=== PATIENT | male | born 1955 | race Caucasian/White ===

== ENCOUNTER → 2017-01-12 | Outpatient (CLI) | payer BC ==
[~2017-01-12] MED LIST: BENICAR; [UNRECOGNIZED DRUG - REMARK]
--- NOTE | 2017-01-12 17:16 | Diagnostic Imaging Report ---
PROCEDURE: MRI lumbar spine. TECHNIQUE: Multiplanar, multisequence MRI of the lumbar spine was performed without contrast. INDICATION: Low back pain. FINDINGS: There is grade 1 spondylolisthesis of L4 over L5. There is minimal posterior translation of T12 over L1. There is no definite pars defect seen although this is better evaluated with oblique radiographs or CT lumbar spine. The vertebral body heights are preserved. There is significant disc height loss at L4/5 and moderate disc height loss at L3/4 level. There is mild disc desiccation at the upper and mid lumbar spine. There is reactive marrow changes around endplates of L4/5, L3/4 and T12/L1 levels. No suspicious marrow signal abnormality is seen. There is prominent facet arthropathy in the lower lumbar spine most prominent on the left side at L4/5 level with small facet joint effusion. T12/L1: There is minimal retrolisthesis and diffuse disc bulge at this level. No central canal or lateral recess stenosis. No foraminal narrowing. L1/2: There is no disc herniation. Mild facet hypertrophy. No central canal or lateral recess stenosis. L2/3: There is mild disc bulge and mild facet hypertrophy. No central canal stenosis. There is minimal narrowing of the lateral recess. No foraminal stenosis. L3/L4: There is diffuse disc bulge with an annular tear seen posteriorly. There is mild central canal stenosis reducing the AP dimension of the canal to 9.2 mm. There is bilateral mild to moderate facet arthropathy with bilateral moderate stenosis of the lateral recess abutting the descending L4 nerve roots. The foramina demonstrate no significant stenosis. L4/5: There is grade 1 spondylolisthesis and a diffuse disc bulge asymmetric to the left. There is moderate to severe facet arthropathy. There is severe central canal stenosis reducing the AP dimension of the canal to 5.8 mm and there is severe lateral recess stenosis bilaterally that would compress the descending nerve roots particularly at L5 level. There is also bilateral foraminal stenosis moderate to severe on the left and severe on the right side. L5/S1: There is no significant disc herniation. There is mild facet hypertrophy. No central canal stenosis. There is mild to moderate lateral recess stenosis more on the left side abutting the descending left S1 nerve root. There is mild bilateral foraminal stenosis. IMPRESSION: There is severe spinal canal stenosis at L4/5 level, with bilateral foraminal stenosis worse on the right side. There is also grade 1 spondylolisthesis at this level. Dictated by: Dictated on workstation # [id number]
== END ==
LOC: RAD 16:16
PROVIDERS: ATTEND Family Medicine
DX: M54.5 Low back pain (principal)
CPT/HCPCS: 72148

== ENCOUNTER → 2021-11-05 | Outpatient (CLI) | payer BC ==
[~2021-11-05] MED LIST changes: +CATHETER FLUSH 10 ML SYR IV PRN; +HOLD METFORMIN - RECEIVED CONTRAST 20 ML VIAL IV SCH; +IOHEXOL 350 MG/ML 100 ML (OMNIPAQUE 350) VIAL IV ONE; +NS 100 ML (IVPB) BAG IV ONE
--- NOTE | 2021-11-05 13:45 | Diagnostic Imaging Report ---
PROCEDURE: CT abdomen and pelvis with contrast. TECHNIQUE: Multiple contiguous axial images were obtained through the abdomen and pelvis after administration of intravenous contrast. Auto Exposure Controls were utilized during the CT exam to meet ALARA standards for radiation dose reduction. All CT scans use one or more of the following dose optimizing techniques: automated exposure control, MA and/or KvP adjustment based on patient size and exam type or iterative reconstruction. INDICATION: Chronic pancreatitis. COMPARISON: No prior studies are available for comparison. The lung bases are clear. There are circumscribed low attenuation lesions throughout the liver suggestive of cysts. The liver does demonstrate generalized low density consistent with hepatic steatosis. Gallbladder is unremarkable. There is no biliary ductal dilatation. The pancreas demonstrates generalized homogeneous parenchymal enhancement. There is no pancreatic ductal dilatation. No peripancreatic inflammation or fluid is identified. There are no pseudocysts present. The spleen is unremarkable. No adrenal mass is identified. The kidneys are unremarkable. Aorta is nonaneurysmal. The bowel loops are normal caliber. There is no obstruction. There is no free fluid or fluid collection. The bladder is unremarkable. Prostate does appear to be mildly enlarged. The bony structures are nonacute. IMPRESSION: 1. Hepatic steatosis and probable hepatic cysts. 2. No CT evidence of acute pancreatitis or complications from pancreatitis. No acute feature is detected. Dictated by: Dictated on workstation # [id number]
== END ==
LOC: RAD 12:45
PROVIDERS: ATTEND Family Medicine
DX: K76.0 Fatty (change of) liver, not elsewhere classified (principal); K86.1 Other chronic pancreatitis
CPT/HCPCS: 74177